=== PATIENT | female | born 1965 | race Caucasian/White ===

== ENCOUNTER 2019-07-08 00:41 | Day surgery (SDC) | payer BC, SELFPAY ==
[2019-07-07 13:48] VITALS: BMI 37.3
[2019-07-08 06:46] VITALS: BP 136/90; PULSE 102; RESP 16; TEMP 37.2; O2SAT 99
[2019-07-08] MEDS: LACTATED RINGERS 1,000 ML 150 ML IV CONT (06:56)
--- NOTE | 2019-07-08 07:01 | WPDANESEPPF ---
Anes - Initial Pre Proc Eval Procedure: Operation Date: 07/08/19 07:30 Proposed Procedures p Colonoscopy - Manuel Reyes DO Date/Time: 07/08/19 07:01 Surgeon: Manuel Reyes DO Pre Op Diagnosis: Diverticulitis Patient Data Age: 54 Gender: F Height: 1.7 m Weight: 107.3 kg Last Vital Signs Temp 37.2 C 07/08/19 06:46 Pulse 102 H 07/08/19 06:46 Resp 16 07/08/19 06:46 BP 136/90 07/08/19 06:46 Pulse Ox 99 07/08/19 06:46 Allergies Allergy/AdvReac Type Severity Reaction Status Date / Time codeine AdvReac Intermediate Vomiting Verified 07/08/19 06:41 Home Medications Medication Instructions Recorded Confirmed Type ergocalciferol (vitamin D2) 1,250 mcg PO WEEKLY 04/18/19 07/08/19 History estradiol 0.5 mg PO DAILY 04/18/19 07/08/19 History levothyroxine 50 mcg PO DAILY 04/18/19 07/08/19 History medroxyprogesterone 5 mg PO DAILY 04/18/19 07/08/19 History sumatriptan succinate 100 mg PO DAILY PRN 04/18/19 07/08/19 History Patient hx anesthesia problems: none Family hx anesthesia problems: none PMFSH Social History Social History Smoking status: Unknown if ever smoked Anes - Eval Final PreProcedure Day of Procedure 07/08/19 07:01 Patient weight: obese Heart: regular rate and rhythm Lungs: clear to auscultation and normal air movement Airway: Mallampati scale class II Neurological: alert and oriented Last oral intake: >/= 8 hours ASA classification: II Emergent: no Anesthetic plan: proceed Anesthesia type and monitoring: general GIVS and standard monitoring Informed Consent: The patient's anesthetic plan and its attendant risks and benefits were discussed with the patient/family/POA. Questions were solicited and answers provided to the satisfaction of the patient/family/POA.
--- NOTE | 2019-07-08 07:24 | PM.IMHP ---
H&P: HPI History of Present Illness Chief complaint: Diverticulitis Narrative: This very pleasant 54-year-old white female was seen in consultation at the request of the primary. The patient was examined. Reason for visit colonoscopy. Impression: Patient is here for screening surveillance colonoscopy. She has a history adenomatous colon polyps. She is here to assure complete removal of a polyp. Migraine cephalgia. Hypothyroidism. Obesity. Recommendation: Colonoscopy. History: This very pleasant lady has a history adenomatous colon polyps. She had a large polyp that was removed in pieces. She is here for follow-up endoscopy to assure complete removal. GI review systems negative at this time. Review of Systems Review of Systems: All systems reviewed & are unremarkable except as noted in HPI and below PMFSH Past Medical History Medical History (Updated 07/08/19 @ 07:26 by Manuel Reyes DO) Adenomatous colon polyp Anxiety Depression Diverticulitis GI bleed Hypothyroid Left wrist fracture Migraine Surgical History Surgical History (Updated 07/08/19 @ 07:26 by Manuel Reyes DO) H/O colonoscopy H/O wisdom tooth extraction Social History Social History Smoking status: Unknown if ever smoked Meds Home Medications and Allergies Home Medications Medication Instructions Recorded Confirmed Type ergocalciferol (vitamin D2) 1,250 mcg PO WEEKLY 04/18/19 07/08/19 History estradiol 0.5 mg PO DAILY 04/18/19 07/08/19 History levothyroxine 50 mcg PO DAILY 04/18/19 07/08/19 History medroxyprogesterone 5 mg PO DAILY 04/18/19 07/08/19 History sumatriptan succinate 100 mg PO DAILY PRN 04/18/19 07/08/19 History Allergies Allergy/AdvReac Type Severity Reaction Status Date / Time codeine AdvReac Intermediate Vomiting Verified 07/08/19 06:41 Vital Signs Vital Signs - 24 hr 07/08/19 06:46 Temperature 37.2 C Pulse Rate 102 H Respiratory Rate 16 Blood Pressure 136/90 Pulse Oximetry 99 Exam Narrative: Exam Narrative: General: very pleasant patient in no acute distress. HEENT: Head was normocephalic sclerae is clear mouth without masses neck was supple. Heart: Rate rhythm regular without S3 or S4. Lungs: CTA. Abdomen: Soft with no guarding or rigidity. Bowel sounds were active. Neurologic: Cranial nerves 2 through 12 intact. No focal defects. No clonus. Musculoskeletal system: Revealed no joint tenderness or swelling no muscle atrophy. Extremities: Reveal no significant edema. Skin: Warm and dry with normal turgor. Mental status: intact. Patient is alert and oriented. Thank you for allowing me to participate in care this was the patient.
[2019-07-08 07:52] VITALS: BP 116/73; PULSE 80; RESP 19; O2SAT 99
[2019-07-08 08:02] VITALS: BP 124/74; PULSE 72; RESP 16; O2SAT 98
[2019-07-08 08:12] VITALS: BP 123/81; PULSE 78; RESP 19; O2SAT 97
== END 2019-07-08 08:23 | disposition home or self-care (01) ==
PROVIDERS: PCP Family Medicine; Visit Provider Internal Medicine Gastroenterology
PROC: 0DJD8ZZ Inspection of Lower Intestinal Tract, Via Natural or Artificial Opening Endoscopic (ICD-10-PCS; CPT 45378; principal; 2019-07-08 07:30)
DX: Z12.11 Encounter for screening for malignant neoplasm of colon (principal); D12.8 Benign neoplasm of rectum; K57.30 Diverticulosis of large intestine without perforation or abscess without bleeding; K64.8 Other hemorrhoids; E03.9 Hypothyroidism, unspecified; F41.8 Other specified anxiety disorders; E66.9 Obesity, unspecified; Z68.37 Body mass index [BMI] 37.0-37.9, adult
CPT/HCPCS: 45380; 88305; J2704; J7120

== ENCOUNTER → 2020-03-06 08:37 | Outpatient (CLI) | payer BC, SELFPAY ==
--- NOTE | ~2020-03-06 | US_ITS ---
EXAMINATION: US transvaginal DATE: 03/06/2020 09:32 INDICATION: Postmenopausal bleeding. TECHNIQUE: Multiple transabdominal and endovaginal sonographic images of the pelvis were obtained. COMPARISON: CT dated FINDINGS: The uterus measures 11.4 x 6.7 x 6.4 cm. A couple subcentimeter anechoic nabothian cysts at the cervi x. There are several uterine fibroids including a 1.7 cm hypoechoic fibroid at the anterior fundus an d an approximately 1.5 cm hyperechoic fibroid posteriorly. On the cine images these appear to distort partially obscured the endometrial canal with the visualized portion of the endometrial canal measur es up to 2 mm in thickness. The endometrial complex measurement performed by the agribusiness professor appears to correspond to a portion of the more posterior hyperechoic fibroid. The bilateral ovaries are not v isualized. There is no free fluid in the pelvis. IMPRESSION: 1. Fibroid uterus which distorts and partially obscures the endometrial complex which does not appear thickened on the cine sagittal images. Could consider further evaluation with MRI for clearer visual ization of the endometrial complex if clinically indicated. Reviewed, dictated and finalized at location A. [facility] TECH IMPRESSION: 1. Fibroid uterus which distorts and partially obscures the endometrial complex which does not appear thickened on the cine sagittal images. Could consider fu rther evaluation with MRI for clearer visualization of the endometrial complex if clinically indicated.
== END ==
PROVIDERS: Visit Provider Nurse Practitioner
DX: D25.9 Leiomyoma of uterus, unspecified (principal)
CPT/HCPCS: 76830

== ENCOUNTER 2020-03-17 00:30 | Outpatient (CLI) | payer BC, SELFPAY ==
[2020-03-17 19:24] LABS: SARS-CoV-2 RNA PCR Negative
== END 2020-03-17 00:31 | disposition home or self-care (01) ==
LOC: ANHCOVIDDT 00:30
PROVIDERS: PCP Family Medicine; Visit Provider Obstetrics & Gynecology Gynecology
DX: Z01.812 Encounter for preprocedural laboratory examination (principal); Z20.828 Contact with and (suspected) exposure to other viral communicable diseases
CPT/HCPCS: 87635; C9803; U0003

== ENCOUNTER 2020-03-20 01:31 | Day surgery (SDC) | payer BC, SELFPAY ==
[2020-03-13 14:54] VITALS: BMI 36.8
[2020-03-20 06:23] VITALS: BP 144/79; PULSE 95; RESP 20; TEMP 36.4; O2SAT 100
[2020-03-20] MEDS: ACETAMINOPHEN 500 MG TABLET 1000 MG PO (06:26)
[2020-03-20] MEDS: LACTATED RINGERS 1,000 ML 30 ML IV CONT (06:57)
[2020-03-20] MEDS: MIDAZOLAM HCL (*CRX) 2 MG/2 ML VIAL IV PUSH (07:15)
--- NOTE | 2020-03-20 07:25 | P.HP_ITS ---
History of Present Illness History of Present Illness Consent: Risks, benefits, and alternatives have been discussed and questions answered. Patient agrees to proceed with procedure. Chief complaint: Postmenopausal Bleeding/ Uterine Fibroids Narrative: Nataly Upton is a 54 year old female with postmenopausal bleeding. Pelvic ultrasound is unable to evaluate endometrium due to fibroids distorting endometium. Recommend to proceed with hysteroscopy and D&C. Discussed with patient may need to remove fibroids if unable to fully evaluate the endometrium. Risks of infection, bleeding, perforation, and possible pathology reviewed. Voiced understanding and agrees to proceed. [facility] Past Medical History Medical History (Updated 03/20/20 @ 07:30 by Amelia Tolbert MD) Adenomatous colon polyp Anxiety Depression Diverticulitis GI bleed Hypothyroid Left wrist fracture Migraine Surgical History Surgical History (System 08/30/19 @ 13:59 by Dulce Cavanaugh) H/O colonoscopy H/O wisdom tooth extraction Family History Family History (System 08/30/19 @ 13:59 by Dulce Cavanaugh) Mother Acute myocardial infarction Cerebrovascular accident Father Family history of lymphoma Family history of malignant neoplasm of breast in first degree relative Grandparent Family history of malignant neoplasm of breast Family history of malignant neoplasm of ovary Social History Social History (System 08/30/19 @ 13:59 by Dulce Cavanaugh) Smoking status: Never smoker Alcohol intake: never Living arrangements: alone Spiritual care concerns: No Meds Home Medications and Allergies Home Medications Medication Instructions Recorded Confirmed Type ergocalciferol (vitamin D2) 1,250 mcg PO 2XW 04/18/19 03/13/20 History estradiol 0.5 mg PO QNOON 04/18/19 03/13/20 History levothyroxine 50 mcg PO DAILY 04/18/19 03/13/20 History medroxyprogesterone 5 mg PO QNOON 04/18/19 03/13/20 History sumatriptan succinate 100 mg PO PRN PRN 04/18/19 03/13/20 History ondansetron 4 mg PO PRN PRN 03/13/20 03/13/20 History Allergies Allergy/AdvReac Type Severity Reaction Status Date / Time codeine AdvReac Intermediate Vomiting Verified 03/13/20 14:27 Exam Const: General: healthy appearing and alert Orientation/consciousness: patient oriented x3 Resp: Effort & Inspection: normal respiratory effort Auscultation: clear to auscultation bilaterally Cardio: Rate: regular rate Rhythm: regular rhythm GI: GI Palp: Yes Soft to palpation, No Tenderness to palpation present (GI) and No Palpable mass present : External Female Exam: normal external appearance Speculum Exam - Vagina: normal appearance of the vagina and normal vaginal discharge Speculum Exam - Cervix: normal appearance of the cervix Bimanual exam- vagina & uterus: consistency normal and other (uterus about 12 wk size) Bimanual Exam- Adnexa, other: normal adnexae and No adnexal tenderness Neuro: General: patient oriented x3 Assessment and Plan Assessment and plan (1) Post-menopausal bleeding: Code(s): N95.0 - Postmenopausal bleeding Status: Acute Assessment and Plan: Plan to proceed with hysteroscopy with D&C
--- NOTE | 2020-03-20 07:35 | WPDHPUPDATE1 ---
History and Physical Update Update Date/Time: 03/20/20 07:35 History and Physical has been reviewed, including an updated exam of the patient. There are NO changes in the patient's condition. Risks, benefits, and alternatives have been discussed and questions answered. Patient agrees to proceed with procedure.
--- NOTE | 2020-03-20 07:45 | WPDANESEPPF ---
Anes - Initial Pre Proc Eval Procedure: Operation Date: 03/20/20 08:15 Proposed Procedures p Hysteroscopy, Dilation and Curettage, With Myosure - Amelia Tolbert MD Date/Time: 03/20/20 07:45 Surgeon: Amelia Tolbert MD Pre Op Diagnosis: Postmenopausal Bleeding/ Uterine Fibroids Patient Data Age: 54 Gender: F Height: 5 ft 7 in Weight: 104.8 kg Last Vital Signs Temp 36.4 C L 03/20/20 06:23 Pulse 95 03/20/20 06:23 Resp 20 03/20/20 06:23 BP 144/79 H 03/20/20 06:23 Pulse Ox 100 03/20/20 06:23 Allergies Allergy/AdvReac Type Severity Reaction Status Date / Time codeine AdvReac Intermediate Vomiting Verified 03/20/20 07:32 Home Medications Medication Instructions Recorded Confirmed Type ergocalciferol (vitamin D2) 1,250 mcg PO 2XW 04/18/19 03/20/20 History estradiol 0.5 mg PO QNOON 04/18/19 03/20/20 History levothyroxine 50 mcg PO DAILY 04/18/19 03/20/20 History medroxyprogesterone 5 mg PO QNOON 04/18/19 03/20/20 History sumatriptan succinate 100 mg PO PRN PRN 04/18/19 03/13/20 History ondansetron 4 mg PO PRN PRN 03/13/20 03/13/20 History Patient hx anesthesia problems: none Family hx anesthesia problems: none PMFSH Past Medical History Medical History Adenomatous colon polyp Anxiety Depression Diverticulitis GI bleed Hypothyroid Left wrist fracture Migraine Surgical History Surgical History H/O colonoscopy H/O wisdom tooth extraction Family History Family History Mother Acute myocardial infarction Cerebrovascular accident Father Family history of lymphoma Family history of malignant neoplasm of breast in first degree relative Grandparent Family history of malignant neoplasm of breast Family history of malignant neoplasm of ovary Social History Social History Smoking status: Never smoker Alcohol intake: never Living arrangements: alone Spiritual care concerns: No Anes - Eval Final PreProcedure Day of Procedure 03/20/20 07:45 Patient weight: obese Heart: regular rate and rhythm Lungs: clear to auscultation Airway: Mallampati scale class II Neurological: alert and oriented Last oral intake: >/= 8 hours ASA classification: III Emergent: no Anesthetic plan: proceed Anesthesia type and monitoring: general GIVS and standard monitoring Informed Consent: The patient's anesthetic plan and its attendant risks and benefits were discussed with the patient/family/POA. Questions were solicited and answers provided to the satisfaction of the patient/family/POA.
--- NOTE | 2020-03-20 08:51 | SUR.OPER ---
Hysteroscopy fluid, 2000ml in and 1400ml out
[2020-03-20 08:59] VITALS: BP 121/74; PULSE 83; RESP 12; O2SAT 100
--- NOTE | 2020-03-20 09:01 | P.OP_ITS ---
Procedure Note - Detailed Date of procedure: 03/20/20 Pre-op diagnosis: Postmenopausal Bleeding/ Uterine Fibroids Post-op diagnosis: same Procedure performed: D&C hysteroscopy with myosure Description of procedure: The patient was taken to the operating room and placed under anesthesia in the dorsal lithotomy position. She was prepped and draped in the usual sterile fashion. [place] speculum was placed in the vagina and the cervix is grasped on the anterior lip with a tenaculum. The uterus is sounded to 10cm. The cervix is serially dilated to an 8 [place]. The diagnostic MyoSure scope was placed and the stated findings are noted. The MyoSure device is used to remove both polyps as well as the majority of the fibroid is removed. The remainder of the endometrium appears grossly normal. Measure device is removed. The endometrium was sharply curetted until a good uterine cry was noted in all areas. All instruments are removed. Sponge, instrument, and needle counts are correct per the OR staff. Anesthesia: MAC and local Surgeon: Amelia Tolbert MD Estimated blood loss (mL): 5 Drains: No Packing: No Pathology: yes (endometrial shavings and curettings) Complications: No immediate complications Condition: stable Disposition: PACU Findings: uterus 10 cm; posterior midline large polyp; left cornua polyp; left side wall fibroid
[2020-03-20 09:25] VITALS: BP 134/84; PULSE 78; RESP 12
[2020-03-20 09:40] VITALS: BP 136/76; PULSE 76; RESP 12; O2SAT 100
[2020-03-20] MEDS: fentaNYL CITRATE INJ (*CRX) 100 MCG/2 ML VIAL 25 MCG IV PUSH ×2 (09:41→09:46)
[2020-03-20 09:45] VITALS: BP 124/67; PULSE 74; RESP 12; O2SAT 100
[2020-03-20 10:05] VITALS: BP 140/84; PULSE 79; RESP 12; O2SAT 100
== END 2020-03-20 10:18 | disposition home or self-care (01) ==
PROVIDERS: PCP Family Medicine; Visit Provider Obstetrics & Gynecology Gynecology
PROC: 0U5B8ZZ Destruction of Endometrium, Via Natural or Artificial Opening Endoscopic (ICD-10-PCS; CPT 58563; principal; 2020-03-20 08:15)
DX: N95.0 Postmenopausal bleeding (principal); D25.0 Submucous leiomyoma of uterus; N84.0 Polyp of corpus uteri; E03.9 Hypothyroidism, unspecified; F41.8 Other specified anxiety disorders; E66.9 Obesity, unspecified; Z68.36 Body mass index [BMI] 36.0-36.9, adult
CPT/HCPCS: 58561; 88305; A9270; J2250; J2704; J3010; J7030; J7120

== ENCOUNTER 2020-04-10 02:19 | Outpatient (CLI) | payer BC, SELFPAY ==
[2020-04-10 18:35] LABS: SARS-CoV-2 RNA PCR Negative
== END 2020-04-10 02:20 | disposition home or self-care (01) ==
LOC: ANHCOVIDDT 02:19
PROVIDERS: PCP Family Medicine; Visit Provider Internal Medicine Gastroenterology
DX: Z01.812 Encounter for preprocedural laboratory examination (principal); Z20.828 Contact with and (suspected) exposure to other viral communicable diseases
CPT/HCPCS: 87635; C9803; U0003

== ENCOUNTER 2020-04-13 00:20 | Day surgery (SDC) | payer BC, SELFPAY ==
[2020-04-07 09:17] VITALS: BMI 36.9
--- NOTE | 2020-04-12 12:38 | WPDANESEPPF ---
Anes - Initial Pre Proc Eval Procedure: Operation Date: 04/13/20 09:30 Proposed Procedures p Screening Colonoscopy - Manuel Reyes DO Date/Time: 04/12/20 12:38 Surgeon: Manuel Reyes DO Pre Op Diagnosis: neoplasm screening Patient Data Age: 54 Gender: F Height: 1.7 m Weight: 107 kg Allergies Allergy/AdvReac Type Severity Reaction Status Date / Time codeine AdvReac Intermediate Vomiting Verified 04/07/20 09:18 Home Medications Medication Instructions Recorded Confirmed Type ergocalciferol (vitamin D2) 1,250 mcg PO 2XW 04/18/19 04/07/20 History estradiol 0.5 mg PO QNOON 04/18/19 04/07/20 History levothyroxine 50 mcg PO DAILY 04/18/19 04/07/20 History medroxyprogesterone 5 mg PO QNOON 04/18/19 04/07/20 History sumatriptan succinate 100 mg PO PRN PRN 04/18/19 04/07/20 History mirabegron [Myrbetriq] 25 mg PO HS 04/07/20 04/07/20 History Patient hx anesthesia problems: none Family hx anesthesia problems: none PMFSH Past Medical History Medical History Adenomatous colon polyp Anxiety Depression Diverticulitis GI bleed Hypothyroid Left wrist fracture Migraine Surgical History Surgical History H/O colonoscopy H/O wisdom tooth extraction Family History Family History Mother Acute myocardial infarction Cerebrovascular accident Father Family history of lymphoma Family history of malignant neoplasm of breast in first degree relative Grandparent Family history of malignant neoplasm of breast Family history of malignant neoplasm of ovary Social History Social History Smoking status: Never smoker Alcohol intake: never Substance use: never Substance use type: does not use Living arrangements: with family Spiritual care concerns: No Anes - Eval Final PreProcedure Day of Procedure 04/12/20 12:38 Patient weight: obese Heart: regular rate and rhythm Lungs: clear to auscultation and normal air movement Airway: Mallampati scale class II Neurological: alert and oriented Last oral intake: >/= 8 hours ASA classification: III Emergent: no Anesthetic plan: proceed Anesthesia type and monitoring: general GIVS and standard monitoring Informed Consent: The patient's anesthetic plan and its attendant risks and benefits were discussed with the patient/family/POA. Questions were solicited and answers provided to the satisfaction of the patient/family/POA.
[2020-04-13 08:22] VITALS: BP 137/80; PULSE 104; RESP 16; TEMP 36.8; O2SAT 99; BMI 36.3
[2020-04-13] MEDS: LACTATED RINGERS 1,000 ML 150 ML IV CONT (08:33)
--- NOTE | 2020-04-13 08:49 | PM.IMHP ---
H&P: HPI History of Present Illness Date/Time: 04/13/20 08:49 Chief Complaint: See below Narrative: reason for visit is colonoscopy. This very pleasant lady seen in consultation at the request the primary physician. Impression: Screening and surveillance colonoscopy. The patient's history of an adenomatous rectal polyp. Recurrence of the polypectomy site was noted. She is here for continued screening and surveillance. Diverticulosis coli. Hypothyroidism. Anxiety / depression. Obesity. Migraine cephalgia. Recommendation: Colonoscopy. History: This very pleasant lady has left lower quadrant abdominal discomfort. She has a history adenomatous colon polyps. Follow-up colonoscopy revealed some residual adenomatous tissue. She is here for follow-up colonoscopy to assess the need for further polyp removal. Physical examination: General: very pleasant patient in no acute distress. HEENT: Head was normocephalic sclerae is clear mouth without masses neck was supple. Heart: Rate rhythm regular without S3 or S4. Lungs: CTA. Abdomen: Soft with no guarding or rigidity. Bowel sounds were active. Neurologic: Cranial nerves 2 through 12 intact. No focal defects. No clonus. Musculoskeletal system: Revealed no joint tenderness or swelling no muscle atrophy. Extremities: Reveal no significant edema. Skin: Warm and dry with normal turgor. Mental status: intact. Patient is alert and oriented. Review of Systems Review of Systems: All systems reviewed & are unremarkable except as noted in HPI and below PMFSH Past Medical History Medical History Adenomatous colon polyp Anxiety Depression Diverticulitis GI bleed Hypothyroid Left wrist fracture Migraine Surgical History Surgical History H/O colonoscopy H/O wisdom tooth extraction Family History Family History Mother Acute myocardial infarction Cerebrovascular accident Father Family history of lymphoma Family history of malignant neoplasm of breast in first degree relative Grandparent Family history of malignant neoplasm of breast Family history of malignant neoplasm of ovary Social History Social History Smoking status: Never smoker Alcohol intake: never Substance use: never Substance use type: does not use Living arrangements: with family Spiritual care concerns: No Meds Home Medications and Allergies Home Medications Medication Instructions Recorded Confirmed Type ergocalciferol (vitamin D2) 1,250 mcg PO 2XW 04/18/19 04/13/20 History estradiol 0.5 mg PO QNOON 04/18/19 04/13/20 History levothyroxine 50 mcg PO DAILY 04/18/19 04/13/20 History medroxyprogesterone 5 mg PO QNOON 04/18/19 04/13/20 History sumatriptan succinate 100 mg PO PRN PRN 04/18/19 04/07/20 History mirabegron [Myrbetriq] 25 mg PO HS 04/07/20 04/13/20 History Allergies Allergy/AdvReac Type Severity Reaction Status Date / Time codeine AdvReac Intermediate Vomiting Verified 04/13/20 08:22 Vital Signs Vital Signs - 24 hr 04/13/20 08:22 Temperature 36.8 C Pulse Rate 104 H Respiratory Rate 16 Blood Pressure 137/80 Pulse Oximetry 99
[2020-04-13 09:17] VITALS: BP 114/68; PULSE 79; RESP 20; O2SAT 100
[2020-04-13 09:27] VITALS: BP 118/65; PULSE 79; RESP 17; O2SAT 100
[2020-04-13 09:37] VITALS: BP 120/78; PULSE 84; RESP 18; O2SAT 99
[2020-04-13 09:40] VITALS: BP 133/72; PULSE 81; RESP 17; O2SAT 100
== END 2020-04-13 09:53 | disposition home or self-care (01) ==
PROVIDERS: PCP Family Medicine; Visit Provider Internal Medicine Gastroenterology
PROC: 0DJD8ZZ Inspection of Lower Intestinal Tract, Via Natural or Artificial Opening Endoscopic (ICD-10-PCS; CPT 45378; principal; 2020-04-13 09:30)
DX: Z12.11 Encounter for screening for malignant neoplasm of colon (principal); D12.8 Benign neoplasm of rectum; F41.9 Anxiety disorder, unspecified; F32.9 Major depressive disorder, single episode, unspecified; E03.9 Hypothyroidism, unspecified; G43.909 Migraine, unspecified, not intractable, without status migrainosus; K57.92 Diverticulitis of intestine, part unspecified, without perforation or abscess without bleeding; E66.9 Obesity, unspecified; Z68.36 Body mass index [BMI] 36.0-36.9, adult
CPT/HCPCS: 45380; 87635; 88305; C9803; J2704; J7120; U0003

== ENCOUNTER → 2020-05-03 13:42 | Outpatient (CLI) | payer BC, SELFPAY ==
--- NOTE | ~2020-05-03 | MM_ITS ---
EXAMINATION: MM screening haseeb BI w breanna HISTORY: Screening mammogram TECHNIQUE: Craniocaudal and mediolateral oblique 3-D tomosynthesis images were obtained and synthetic 2-D images were generated. CAD analysis was submitted and interpreted. COMPARISON: 02/05/2019 bilateral digital screening mammogram 09/11/2017 diagnostic left digital mammogram and limited left breast ultrasound 08/18/2017, 07/24/2016 bilateral digital screening mammogram examinations BREAST PARENCHYMAL COMPOSITION: There are scattered areas of fibroglandular density. FINDINGS: Stable mild fibroglandular asymmetry. Stable circumscribed low-density opacity 5 mm intrama mmary lymph node in the posterior upper left breast on MLO view, unchanged since 08/18/2017. There is no evidence of suspicious mass, calcification, or architectural distortion to suggest malignancy in e ither breast. There has been no suspicious interval change. IMPRESSION: 1. No mammographic evidence of malignancy. 2. Recommend routine screening mammography in one year. BI-RADS Category 2: Benign finding(s). Reviewed, dictated and finalized at location B. IVABLE CLERK
== END ==
PROVIDERS: Visit Provider Nurse Practitioner
DX: Z12.31 Encounter for screening mammogram for malignant neoplasm of breast (principal)
CPT/HCPCS: 77063; 77067

== ENCOUNTER 2021-06-03 11:38 | Emergency (ER) | payer BC, SELFPAY ==
--- NOTE | ~2021-06-03 | CT_ITS ---
EXAMINATION: CT abdomen pelvis w con DATE: 06/03/2021 13:58 INDICATION: Left lower quadrant pain. History of diverticulitis. TECHNIQUE: Computed tomography (CT) of the abdomen and pelvis was performed without intravenous contr ast. The dose-length product was 1316.96 mGy-cm. Automated exposure control and iterative reconstruct ion technique were employed. COMPARISON: CT dated 04/18/2019. FINDINGS: Stable right lower lobe nodules measuring up to 6 mm, most likely benign. Heart size normal . No significant pleural or pericardial effusion. No significant vascular abnormality. No lymphadenop athy. Fatty infiltration of the liver. There is a 3 cm cyst. The spleen, pancreas, adrenal glands and kidne ys are unremarkable. Nonobstructive bowel gas pattern. There are uterine fibroids. Colonic diverticul osis without evidence for diverticulitis. No acute osseous abnormality. Nonobstructive bowel gas franny sathish. Normal appendix. IMPRESSION: 1. No acute abdominal abnormality. 2: Stable benign-appearing right lower lobe nodules, most likely noncalcified granulomas. Reviewed, dictated and finalized at location A. [employer]
[2021-06-03 11:49] VITALS: BP 155/101; PULSE 89; RESP 16; TEMP 36.8; O2SAT 100
--- NOTE | 2021-06-03 12:50 | ED.ABDPAIN ---
HPI - Abdominal Pain General Chief Complaint: Abdominal Pain Stated Complaint: LLQ ABD PAIN XWEEK Time Seen by Provider: 06/03/21 12:27 Source: patient Mode of arrival: ambulatory Limitations: no limitations History of Present Illness HPI narrative: Patient is a 56-year-old female complaining of left upper quadrant pain, 5 out of 10, sharp, nonradiating accompanied by nausea started 1 week ago. Patient states that she has a history of diverticulitis. Patient denies any chest pain, shortness of breath, vomiting, diarrhea, GI bleed, urinary symptoms, fever or chills. Related Data Home Medications Medication Instructions Recorded Confirmed ergocalciferol (vitamin D2) 1,250 mcg PO 2XW 04/18/19 04/13/20 estradiol 0.5 mg PO QNOON 04/18/19 04/13/20 levothyroxine 50 mcg PO DAILY 04/18/19 04/13/20 medroxyprogesterone 5 mg PO QNOON 04/18/19 04/13/20 sumatriptan succinate 100 mg PO PRN PRN 04/18/19 04/07/20 mirabegron [Myrbetriq] 25 mg PO HS 04/07/20 04/13/20 Allergies Allergy/AdvReac Type Severity Reaction Status Date / Time codeine AdvReac Intermediate Vomiting Verified 04/13/20 08:22 Review of Systems Review of Systems: All systems reviewed & are unremarkable except as noted in HPI and below Constitutional: Constitutional: Denies body ache(s), Denies chills, Denies excessive sweating, Denies fatigue, Denies fever(s), Denies headache(s), Denies lethargy, Denies malaise, Denies weakness and Denies weight loss Eyes: Eyes: Denies blurry vision, Denies change in vision and Denies loss of vision ENT: Denies dizziness, Denies ear discharge, Denies headache(s), Denies lip swelling, Denies epistaxis, Denies nasal congestion, Denies neck pain, Denies throat swelling and Denies tongue swelling Cardiovascular: Cardiovascular: Denies chest pain, Denies chest pain at rest, Denies chest pain with activity, Denies diaphoresis, Denies rapid heart rate, Denies edema, Denies irregular heart rhythm, Denies lightheadedness, Denies palpitations, Denies dyspnea and Denies dyspnea on exertion Respiratory: Respiratory: Denies chest congestion, Denies cough, Denies hemoptysis, Denies dyspnea and Denies dyspnea on exertion Gastrointestinal: Gastrointestinal: Denies melena, Denies hematochezia, Denies diarrhea, Denies vomiting and Denies hematemesis Musculoskeletal: Musculoskeletal: Denies abnormal gait, Denies deformity, Denies joint swelling, Denies limited range of motion, Denies neck pain and Denies numbness Neurologic: Denies Abnormal speech present, Denies abnormal gait, Denies confusion, Denies dizziness, Denies headache(s), Denies focal weakness, Denies loss of vision, Denies numbness, Denies Other visual disturbances, Denies Sensory deficit (Neuro) and Denies weakness Psychiatric: Psychiatric: Denies confusion, Denies depression, Denies auditory hallucinations, Denies homicidal ideation and Denies suicidal ideation Endocrine: Endocrine: Denies cold intolerance, Denies excessive sweating, Denies fatigue, Denies heat intolerance and Denies palpitations Hematologic/Lymphatic: Hematologic/Lymphatic: Denies easy bleeding and Denies easy bruising Allergic/Immunologic: Allergic/Immunologic: Denies lip swelling, Denies throat swelling and Denies tongue swelling PMFSH Past Medical History Medical History Adenomatous colon polyp Anxiety Depression Diverticulitis GI bleed Hypothyroid Left wrist fracture Migraine Surgical History Surgical History H/O colonoscopy H/O wisdom tooth extraction Family History Family History Mother Acute myocardial infarction Cerebrovascular accident Father Family history of lymphoma Family history of malignant neoplasm of breast in first degree relative Grandparent Family history of malignant neoplasm of breast Family history of malignant neoplasm o
[2021-06-03 13:00] LABS: Basophils Absolute Auto 0.1 K/mm3 (0.0-0.1); Basophils Percent Auto 0.7 % (0.2-1.2); Eosinophils Absolute Auto 0.1 K/mm3 (0-0.3); Eosinophils Percent Auto 0.5 % (0-4.4); Hematocrit 42.3 % (37.0-47.0); Hemoglobin 14.2 g/dL (12.0-15.0); Immature Granulocyte Absolute 0.07 K/mm3 (0.00-0.031); Immature Granulocyte Percent A 0.8 % (0-0.5); Lymphocytes Absolute Auto 1.64 K/mm3 (0.9-3.2); Lymphocytes Percent Auto 17.9 % (18.3-44.2); Mean Corpuscular HGB Conc 33.6 g/dl (32-36); Mean Corpuscular Hemoglobin 30.1 pg (26-34); Mean Corpuscular Volume 89.8 fl (80-100); Mean Platelet Volume 9.5 fl (7.4-10.4); Monocytes Absolute Auto 0.6 K/mm3 (0.1-0.6); Monocytes Percent Auto 6.8 % (2.6-8.5); Neutrophils Absolute Auto 6.7 K/mm3 (1.3-6.7); Neutrophils Percent Auto 73.3 % (45.5-73.1); Platelet Count Result 272 k/mm3 (150-375); Red Blood Count 4.71 M/mm3 (4.2-5.4); Red Cell Distribution Width 12.5 % (11.5-14.5); White Blood Count 9.2 K/mm3 (4.5-10.0)
[2021-06-03 13:02] LABS: Add Urine Microscopic? YES; Appearance Urine Clear (Clear); Bacteria Urine 3+ /hpf; Bilirubin Urine Negative (Negative); Blood Urine 1+ (Negative); Color Urine Straw (Yellow); Glucose Urine UA Negative (Negative); Ketones Urine Negative (Negative); Leukocyte Esterase Ur Trace LEU/UL (Negative); Nitrate Urine Negative (Negative); Protein Urine Negative (Negative); Squamous Epithelial Cell Urine Rare /hpf (Few); Urobilinogen Urine Negative mg/dL (<2.0)
[2021-06-03 13:03] LABS: Specific Grav Ur 1.004 (1.001-1.035)
[2021-06-03 13:09] LABS: Alanine Aminotransferase 28 U/L (4-35); Albumin Level 4.6 g/dL (3.5-5.1); Alkaline Phosphatase 73 U/L (38-126); Anion Gap 9 mmol/L (8-16); Aspartate Amino Transferase 30 U/L (14-36); Bilirubin,Total 0.7 mg/dL (0.2-1.3); Blood Urea Nitrogen 10 mg/dL (7-17); Calcium 9.9 mg/dL (8.4-10.2); Carbon Dioxide 23 mmol/L (22-30); Chloride 102 mmol/L (98-107); Estimated CRCL calculation 84 ml/min; Estimated Glomerular Filt Rate > 60; Glucose 127 mg/dL (65-110); Lipase 73 U/L (23-300); Sodium 134 mmol/L (137-145)
[2021-06-03] MEDS: ONDANSETRON INJ 4 MG/2 ML VIAL IV PUSH (14:08)
[2021-06-03] MEDS: HYDROmorphone HCL INJ (*CRX) 1 MG/ML SYR 0.5 MG IV PUSH (14:08)
[2021-06-03 15:26] VITALS: BP 119/77; PULSE 91; RESP 18; O2SAT 99
[2021-06-03 16:21] VITALS: BP 128/81; PULSE 86; RESP 18; O2SAT 97
== END 2021-06-03 16:22 | disposition home or self-care (01) ==
PROVIDERS: Emergency Provider Emergency Medicine
DX: N39.0 Urinary tract infection, site not specified (principal); R31.9 Hematuria, unspecified; E03.9 Hypothyroidism, unspecified; Z86.010 Personal history of colon polyps; R91.8 Other nonspecific abnormal finding of lung field
CPT/HCPCS: 36415; 74177; 80053; 81001; 83690; 85025; 96374; 96375; 99284; J1170; J2405; Q9967

== ENCOUNTER 2021-09-10 20:20 | Emergency (ER) | payer BC, SELFPAY ==
--- NOTE | ~2021-09-10 | CT_ITS ---
EXAMINATION: CT abdomen pelvis w con DATE: 09/10/2021 23:04 INDICATION: Lower abdominal pain TECHNIQUE: Computed tomography (CT) of the abdomen and pelvis was performed with 100 mL Omnipaque-350 intravenous contrast. Automated exposure control and iterative reconstruction technique were employe d. The dose-length product was 1433.87 mGy-cm. COMPARISON: 06/03/2021 and 08/16/2014 FINDINGS: Likely benign 4 mm and 5 mm right lower lobe nodules unchanged since 2014. Heart size is normal. No p ericardial or pleural effusion. A few unchanged low-attenuation hepatic cysts the largest measuring 3 cm in the right hepatic lobe. Gallbladder, spleen, pancreas, bilateral adrenal glands and kidneys ar e normal. There is moderate scattered diverticulosis. There is inflammatory stranding surrounding a d iverticulum at the proximal sigmoid colon consistent with diverticulitis. No abscess or free intraper itoneal gas. Small bowel and appendix are normal. Fibroid uterus, the largest measuring 5 cm. Trace a mount of likely physiologic free fluid in the pelvis. No pathologically enlarged abdominal or pelvic lymphadenopathy. Right ischial small bone island.. IMPRESSION: 1. Radiographically uncomplicated sigmoid diverticulitis. 2. Fibroid uterus. Reviewed, dictated and finalized at location A.
[2021-09-10 20:32] VITALS: BP 146/83; PULSE 92; RESP 18; TEMP 37.1; O2SAT 99
[2021-09-10 20:51] LABS: Bacteria Urine 2+ /hpf; Squamous Epithelial Cell Urine Occasional /hpf (Few); WBC Urine 0-3 /hpf
--- NOTE | 2021-09-10 20:58 | PC.NURSE ---
Pt requests this nurse not take blood until an IV is placed since she is a hard stick .
[2021-09-10 20:59] LABS: Appearance Urine Clear (Clear); Bilirubin Urine Negative (Negative); Blood Urine 1+ (Negative); Color Urine Yellow (Yellow); Glucose Urine UA Negative (Negative); Ketones Urine Negative (Negative); Leukocyte Esterase Ur Negative LEU/UL (Negative); Nitrate Urine Negative (Negative); Protein Urine Negative (Negative); Specific Grav Ur 1.015 (1.001-1.035); Urobilinogen Urine 0.2 mg/dL (<2.0)
[2021-09-10 21:00] LABS: Add Urine Microscopic? YES
[2021-09-10 22:24] LABS: Basophils Absolute Auto 0.1 K/mm3 (0.0-0.1); Basophils Percent Auto 0.6 % (0.2-1.2); Eosinophils Absolute Auto 0.1 K/mm3 (0-0.3); Eosinophils Percent Auto 1.2 % (0-4.4); Hematocrit 38.5 % (37.0-47.0); Hemoglobin 12.7 g/dL (12.0-15.0); Immature Granulocyte Absolute 0.08 K/mm3 (0.00-0.031); Immature Granulocyte Percent A 0.7 % (0-0.5); Lymphocytes Absolute Auto 2.26 K/mm3 (0.9-3.2); Lymphocytes Percent Auto 19.4 % (18.3-44.2); Mean Corpuscular Hemoglobin 29.6 pg (26-34); Mean Corpuscular Volume 89.7 fl (80-100); Mean Platelet Volume 9.8 fl (7.4-10.4); Monocytes Percent Auto 8.6 % (2.6-8.5); Neutrophils Absolute Auto 8.1 K/mm3 (1.3-6.7); Neutrophils Percent Auto 69.5 % (45.5-73.1); Platelet Count Result 263 k/mm3 (150-375); Red Blood Count 4.29 M/mm3 (4.2-5.4); Red Cell Distribution Width 12.8 % (11.5-14.5); White Blood Count 11.6 K/mm3 (4.5-10.0)
[2021-09-10 22:37] LABS: Alanine Aminotransferase 26 U/L (6-35); Albumin Level 4.7 g/dL (3.5-5.1); Alkaline Phosphatase 65 U/L (38-126); Anion Gap 7 mmol/L (8-16); Aspartate Amino Transferase 27 U/L (14-36); Bilirubin,Total 0.5 mg/dL (0.2-1.3); Blood Urea Nitrogen 9 mg/dL (7-17); Calcium 9.2 mg/dL (8.4-10.2); Carbon Dioxide 25 mmol/L (22-30); Chloride 103 mmol/L (98-107); Estimated CRCL calculation 96 ml/min; Estimated Glomerular Filt Rate > 60; Glucose 134 mg/dL (65-110); Lipase 128 U/L (23-300); Potassium 4.4 mmol/L (3.4-5.0); Sodium 135 mmol/L (137-145)
[2021-09-10] MEDS: SODIUM CHLORIDE 0.9% IV 1,000 ML 999 ML IV CONT (23:19)
[2021-09-10] MEDS: ONDANSETRON INJ 4 MG/2 ML VIAL IV PUSH (23:20)
[2021-09-10] MEDS: HYDROmorphone HCL INJ (*CRX) 1 MG/ML SYR IV PUSH (23:21)
--- NOTE | 2021-09-10 23:30 | ED.ABDPAIN ---
HPI - Abdominal Pain General Chief Complaint: Abdominal Pain Stated Complaint: Lower abdominal pain Time Seen by Provider: 09/10/21 22:27 Source: patient and RN notes reviewed Mode of arrival: ambulatory Limitations: no limitations History of Present Illness HPI narrative: This is a 56 year old female with history of diverticulitis and UTI who presents for evaluation of left lower abdominal pain. She describes has pressure pain to left lower abdomen for several weeks. This pain has been constant but it intermittently worsens. She also reports left lower back/buttock pain. She has been taking Tylenol for pain, and she took 2 prior to arrival due to having fever 101. She has nausea but denies vomiting. She denies hematuria or dysuria. She called her urologist about her pain and she was prescribed an antibiotic. She has not had any improvement in her pain. She denies history of kidney stones and she reports this pain does not feel like her previous episode of diverticulitis. She rates pain as 8/10. Related Data Home Medications Medication Instructions Recorded Confirmed ergocalciferol (vitamin D2) 1,250 mcg PO 2XW 04/18/19 04/13/20 estradiol 0.5 mg PO QNOON 04/18/19 04/13/20 levothyroxine 50 mcg PO DAILY 04/18/19 04/13/20 medroxyprogesterone 5 mg PO QNOON 04/18/19 04/13/20 sumatriptan succinate 100 mg PO PRN PRN 04/18/19 04/07/20 mirabegron [Myrbetriq] 25 mg PO HS 04/07/20 04/13/20 Allergies Allergy/AdvReac Type Severity Reaction Status Date / Time codeine AdvReac Intermediate Vomiting Verified 09/10/21 21:59 Review of Systems Review of Systems: All systems reviewed & are unremarkable except as noted in HPI and below Constitutional: Constitutional: Reports chills and Reports fever(s) ENT: Denies epistaxis and Denies sore throat Cardiovascular: Cardiovascular: Denies chest pain Respiratory: Respiratory: Denies cough and Denies dyspnea Gastrointestinal: Gastrointestinal: Reports abdominal pain, Denies constipation, Denies diarrhea, Reports nausea and Denies vomiting Genitourinary: Genitourinary: Denies hematuria and Denies urinary incontinence Musculoskeletal: Musculoskeletal: Reports back pain PMFSH Past Medical History Medical History Adenomatous colon polyp Anxiety Depression Diverticulitis GI bleed Hypothyroid Left wrist fracture Migraine Surgical History Surgical History H/O colonoscopy H/O wisdom tooth extraction Family History Family History Mother Acute myocardial infarction Cerebrovascular accident Father Family history of lymphoma Family history of malignant neoplasm of breast in first degree relative Grandparent Family history of malignant neoplasm of breast Family history of malignant neoplasm of ovary Social History Social History Smoking status: Never smoker Alcohol intake: never Substance use: never Substance use type: does not use Spiritual care concerns: No Exam Const: General: no acute distress and alert Nutritional Appearance: obese Orientation/consciousness: patient oriented x3 Eyes: EOM: EOMs intact bilaterally Chest: Chest palpation & inspection: normal inspection of the chest Resp: Effort & Inspection: normal respiratory effort and no retractions Auscultation: clear to auscultation bilaterally Cardio: Rate: regular rate Rhythm: regular rhythm Heart sounds: no murmurs GI: GI Palp: Yes Soft to palpation, Yes Tenderness to palpation present (GI) (LLQ, ), No Guarding due to palpation present (GI) and No Rigid due to palpation Auscultation: normal bowel sounds Back/Spine/Pelvis: Back: no CVA tenderness Neuro: General: patient oriented x3, moves all extremities and CN's II-XI intact bilaterally Psych: Mental Status: m
[2021-09-11] MEDS: cefTRIAXone 2 GM in SODIUM CHLORIDE 0.9% IV 100 ML 200 ML IVPB (01:01)
[2021-09-11 02:49] VITALS: BP 156/82; PULSE 87; RESP 18; O2SAT 100
== END 2021-09-11 02:31 | disposition home or self-care (01) ==
PROVIDERS: Emergency Medicine; Emergency Provider General Practice; PCP Family Medicine
DX: K57.32 Diverticulitis of large intestine without perforation or abscess without bleeding (principal); E03.9 Hypothyroidism, unspecified; F41.9 Anxiety disorder, unspecified; F32.A Depression, unspecified; Z86.010 Personal history of colon polyps
CPT/HCPCS: 36415; 74177; 80053; 81001; 81025; 83690; 85025; 95864; 96361; 96365; 96375; 99284; J0696; J1170; J2405; J7030; Q9967

== ENCOUNTER 2021-10-27 08:36 | Emergency (ER) | payer BC, SELFPAY ==
--- NOTE | ~2021-10-27 | CT_ITS ---
EXAMINATION: CT abdomen pelvis w con DATE: 10/27/2021 10:03 INDICATION: Left lower quadrant abdominal pain, suprapubic pain. TECHNIQUE: Computed tomography (CT) of the abdomen and pelvis was performed with 100 CC Omnipaque 300 intravenous contrast. Automated exposure control and iterative reconstruction technique were employe d. Exam dose: 1501.16 mGy-cm total exam DLP. COMPARISON: 09/10/2021 CT abdomen pelvis FINDINGS: Right lower lobe calcified pulmonary granulomas. No infiltrate or consolidation at the lung bases. Normal heart size. No pericardial or pleural effusion. 7 mm probable cyst of the left hepatic lobe. 10 mm cyst of the caudate process of the liver. 3 cm cys t of the lower aspect of the right hepatic lobe. The gallbladder appears unremarkable. No gallbladder wall thickening or pericholecystic fluid or fat stranding. No bile duct or pancreatic duct dilatation. No pancreatic mass lesion or calcification. Normal splenic size. Normal morphology of the adrenal glands. No renal mass lesion or urinary tract calculus or hydroureteronephrosis. Evidence of uterine fibroids. Uterus, adnexal areas and urinary bladder are otherwise unremarkable. Small fat-containing umbilical hernia. Normal caliber of the abdominal aorta. No intraperitoneal or retroperitoneal or pelvic mass lesion or adenopathy or ascites. Normal appendix. Diverticulosis of left and right colon. There is soft tissue thickening of the wall of the mid sigmoi d colon with pericolic fat stranding, consistent with mild sigmoid diverticulitis in the lower anteri or mid pelvis Included skeletal structures are unremarkable. IMPRESSION: Mild sigmoid diverticulitis, lower anterior mid pelvis Diverticulosis of left hemicolon Uterine fibroids Hepatic cysts Reviewed, dictated and finalized at Location [facility]. Reviewed, dictated and finalized at location A.
--- NOTE | ~2021-10-27 | XR_ITS ---
XR toe 1st LT min 2V DATE: 10/27/2021 09:21 INDICATION: Injury. Redness and pain of great toe. TECHNIQUE: Portable AP and lateral views COMPARISON: None FINDINGS: No fracture or dislocation, periosteal reaction or bone destruction of the great toe. Mild osteoarthritis at the first metatarsophalangeal joint. Mild plantar and slight posterior calcaneal enthesopathy. IMPRESSION: No fracture or dislocation. Mild osteoarthritis at first metatarsophalangeal joint Calcaneal enthesopathy Reviewed, dictated and finalized at location A.
[2021-10-27 08:38] VITALS: BP 153/91; PULSE 91; RESP 18; TEMP 37; O2SAT 100
--- NOTE | 2021-10-27 09:03 | ED.ABDPAIN ---
HPI - Abdominal Pain General Chief Complaint: Abdominal Pain Stated Complaint: Abd pain Time Seen by Provider: 10/27/21 08:50 History of Present Illness HPI narrative: Patient is a 56-year-old female with a history of diverticulitis here for evaluation of suprapubic abdominal pain for the past day. Patient states the pain is sharp in nature and is severe, and will occasionally radiate into her left lower quadrant. She has not tried any medication for pain. Denies a history of previous similar sensation. She reports nausea and chills but no vomiting, diarrhea, constipation, blood in stools, dysuria, hematuria, urgency, frequency, fevers. She was treated for diverticulitis at the end of last month with antibiotics; has not yet had follow-up colonoscopy. Last colonoscopy 04/16 with polyps and diverticulosis. Additionally reporting some left great toe irritation for the past 3 days. She states that the toe was incredibly tender to touch and light sensation and was red and inflamed. She was evaluated by her primary care doctor who ordered laboratory studies and imaging, but she has not had this done yet. She does report good relief after indomethacin. Related Data Home Medications Medication Instructions Recorded Confirmed ergocalciferol (vitamin D2) 1,250 1,250 mcg PO 2XW 04/18/19 09/19/21 mcg (50,000 unit) capsule estradiol 0.5 mg tablet 0.5 mg PO QNOON 04/18/19 09/19/21 levothyroxine 50 mcg tablet 50 mcg PO DAILY 04/18/19 09/19/21 medroxyprogesterone 5 mg tablet 5 mg PO QNOON 04/18/19 09/19/21 sumatriptan succinate 100 mg tablet 100 mg PO PRN PRN Migraine Headache 04/18/19 09/19/21 Allergies Allergy/AdvReac Type Severity Reaction Status Date / Time codeine AdvReac Intermediate Vomiting Verified 10/27/21 09:33 Review of Systems Review of Systems: Gen.: Reports chills. Eyes: Denies eye pain or visual change ENT: Denies congestion Respiratory: Denies shortness of breath or cough CV: Denies chest pain or palpitations GI: Reports abdominal pain and nausea. Denies emesis or diarrhea denies burning, urgency, frequency or hematuria Musculoskeletal: Reports right toe pain. Denies back pain or muscle pain Neuro: Denies numbness, tingling, weakness or focal weakness Skin: Denies rash Except as documented, all other systems reviewed and negative [facility] Past Medical History Medical History Adenomatous colon polyp Anxiety Depression Diverticulitis GI bleed Hypothyroid Left wrist fracture Migraine Surgical History Surgical History H/O colonoscopy H/O wisdom tooth extraction Family History Family History Mother Acute myocardial infarction Cerebrovascular accident Father Family history of lymphoma Family history of malignant neoplasm of breast in first degree relative Grandparent Family history of malignant neoplasm of breast Family history of malignant neoplasm of ovary Social History Social History Smoking status: Never smoker Alcohol intake: never Substance use: never Substance use type: does not use Spiritual care concerns: No Exam Narrative: APPEARANCE: Well appearing, no pain in distress, well-nourished. Head: Normocephalic and atraumatic. EYES: PERRLA/EOMI, conjunctivae clear NOSE: No nasal drainage EARS: External ear normal in appearance THROAT: Oropharynx is clear. Mucous membranes are moist. NECK: Supple. No adenopathy, no masses. RESPIRATORY: Airway patent, respirations nonlabored. Clear to auscultation bilaterally, no rales, rhonchi, wheezing. CARDIOVASCULAR: 2+ DP/PT pulses bilaterally. Regular rate and rhythm without murmurs, rubs, or gallops. ABDOMINAL: Tender to palpation in suprapubic region. No CVA tenderness. Normoactive bowel sounds. Soft, nondistended
[2021-10-27 09:35] VITALS: BP 148/93; PULSE 85; RESP 15; O2SAT 99
[2021-10-27 09:35] LABS: Basophils Absolute Auto 0.1 K/mm3 (0.0-0.1); Basophils Percent Auto 0.5 % (0.2-1.2); Eosinophils Absolute Auto 0.1 K/mm3 (0-0.3); Eosinophils Percent Auto 0.8 % (0-4.4); Hematocrit 38.5 % (37.0-47.0); Hemoglobin 13.2 g/dL (12.0-15.0); Immature Granulocyte Absolute 0.11 K/mm3 (0.00-0.031); Immature Granulocyte Percent A 0.9 % (0-0.5); Lymphocytes Absolute Auto 1.43 K/mm3 (0.9-3.2); Lymphocytes Percent Auto 11.9 % (18.3-44.2); Mean Corpuscular HGB Conc 34.3 g/dl (32-36); Mean Corpuscular Hemoglobin 29.6 pg (26-34); Mean Corpuscular Volume 86.3 fl (80-100); Mean Platelet Volume 9.9 fl (7.4-10.4); Monocytes Absolute Auto 0.7 K/mm3 (0.1-0.6); Monocytes Percent Auto 6.2 % (2.6-8.5); Neutrophils Absolute Auto 9.5 K/mm3 (1.3-6.7); Neutrophils Percent Auto 79.7 % (45.5-73.1); Platelet Count Result 278 k/mm3 (150-375); Red Blood Count 4.46 M/mm3 (4.2-5.4); Red Cell Distribution Width 12.4 % (11.5-14.5)
[2021-10-27 09:47] LABS: Appearance Urine Cloudy (Clear); Bilirubin Urine 1+ (Negative); Blood Urine 2+ (Negative); Color Urine Yellow (Yellow); Glucose Urine UA 2+ mg/dL (Negative); Ketones Urine 1+ mg/dL (Negative); Leukocyte Esterase Ur Negative LEU/UL (Negative); Nitrate Urine Negative (Negative); Protein Urine Trace mg/dL (Negative); Specific Grav Ur >= 1.030 (1.001-1.035); Urobilinogen Urine 0.2 mg/dL (<2.0); pH Urine 5.5 (5.0-9.0)
[2021-10-27] MEDS: DICYCLOMINE HCL INJ 20 MG/2 ML VIAL IM (09:47)
[2021-10-27 09:48] LABS: Alanine Aminotransferase 25 U/L (6-35); Albumin Level 4.5 g/dL (3.5-5.1); Alkaline Phosphatase 65 U/L (38-126); Anion Gap 8 mmol/L (8-16); Aspartate Amino Transferase 21 U/L (14-36); Bilirubin,Total 0.8 mg/dL (0.2-1.3); Blood Urea Nitrogen 8 mg/dL (7-17); Carbon Dioxide 23 mmol/L (22-30); Chloride 104 mmol/L (98-107); Estimated CRCL calculation 110 ml/min; Estimated Glomerular Filt Rate > 60; Glucose 192 mg/dL (65-110); Lipase 46 U/L (23-300); Sodium 135 mmol/L (137-145)
[2021-10-27 09:54] LABS: Add Urine Microscopic? YES; Bacteria Urine Trace /hpf; Mucus Urine Heavy /lpf; Squamous Epithelial Cell Urine Moderate /hpf (Few)
[2021-10-27 10:54] VITALS: BP 128/81; PULSE 81; RESP 14; O2SAT 99
[2021-10-27] MEDS: ONDANSETRON INJ 4 MG/2 ML VIAL IV PUSH (11:07)
[2021-10-27] MEDS: MORPHINE SULFATE (*CRX) 4 MG/ML INJ IV PUSH (11:07)
[2021-10-27] MEDS: metroNIDAZOLE 250 MG TABLET 500 MG PO (12:27)
[2021-10-27 12:33] VITALS: BP 136/85; PULSE 74; RESP 15; O2SAT 99
== END 2021-10-27 13:09 | disposition home or self-care (01) ==
PROVIDERS: Emergency Provider Emergency Medicine; PCP Family Medicine
DX: K57.32 Diverticulitis of large intestine without perforation or abscess without bleeding (principal); E03.9 Hypothyroidism, unspecified; F41.9 Anxiety disorder, unspecified; F32.A Depression, unspecified; Z86.010 Personal history of colon polyps; M19.072 Primary osteoarthritis, left ankle and foot; M77.8 Other enthesopathies, not elsewhere classified; K57.90 Diverticulosis of intestine, part unspecified, without perforation or abscess without bleeding; N28.1 Cyst of kidney, acquired; D25.9 Leiomyoma of uterus, unspecified
CPT/HCPCS: 36415; 73660; 74177; 80053; 81001; 83690; 85025; 87086; 96372; 96374; 96375; 99284; A9270; J0500; J2270; J2405; Q9967

== ENCOUNTER 2022-02-14 00:33 | Day surgery (SDC) | payer BC, SELFPAY ==
[2022-01-30 14:40] VITALS: BMI 36.1
[2022-02-14 06:20] VITALS: BP 143/80; PULSE 95; RESP 20; TEMP 36.2; O2SAT 98; BMI 36.7
[2022-02-14] MEDS: LACTATED RINGERS 1,000 ML 150 ML IV CONT (06:30)
--- NOTE | 2022-02-14 07:24 | WPDANESEPPF ---
Anes - Initial Pre Proc Eval Procedure: Operation Date: 02/14/22 07:30 Proposed Procedures p Colonoscopy - Manuel Bush MD Date/Time: 02/14/22 07:24 Surgeon: Manuel Bush MD Pre Op Diagnosis: hx of rectal polyps, diverticulitis Patient Data Age: 56 Gender: F Height: 1.7 m Weight: 106.3 kg Last Vital Signs Temp 97.2 F L 02/14/22 06:20 Pulse 95 02/14/22 06:20 Resp 20 02/14/22 06:20 BP 143/80 H 02/14/22 06:20 Pulse Ox 98 02/14/22 06:20 O2 Del Method Room Air 02/14/22 06:20 Allergies Allergy/AdvReac Type Severity Reaction Status Date / Time codeine AdvReac Intermediate Vomiting Verified 02/14/22 06:18 Home Medications Medication Instructions Recorded Confirmed Type ergocalciferol (vitamin D2) 1,250 1,250 mcg PO 2XW 04/18/19 01/30/22 History mcg (50,000 unit) capsule estradiol 0.5 mg tablet 0.5 mg PO QNOON 04/18/19 01/30/22 History levothyroxine 50 mcg tablet 50 mcg PO DAILY 04/18/19 01/30/22 History medroxyprogesterone 5 mg tablet 5 mg PO QNOON 04/18/19 01/30/22 History sumatriptan succinate 100 mg tablet 100 mg PO PRN PRN Migraine Headache 04/18/19 01/30/22 History sodium,potassium,mag sulfates 17.5 See Rx Instructions PO .COMPLEX 01/01/22 02/14/22 Rx gram-3.13 gram-1.6 gram oral soln #354 mL (Suprep Bowel Prep Kit) solifenacin 5 mg tablet (Vesicare) 5 mg PO DAILY #30 tabs 01/11/22 01/30/22 Rx terbinafine HCl 250 mg tablet 250 mg PO DAILY 01/30/22 01/30/22 History Patient hx anesthesia problems: none Family hx anesthesia problems: none Results Review: All pre-operative results and documents have been reviewed as part of the pre-operative evaluation. [facility] Past Medical History Medical History Adenomatous colon polyp Anxiety Depression Diverticulitis GI bleed Hypothyroid Left wrist fracture Migraine Onychomycosis Surgical History Surgical History H/O colonoscopy H/O wisdom tooth extraction Family History Family History Mother Acute myocardial infarction Cerebrovascular accident Father Family history of lymphoma Family history of malignant neoplasm of breast in first degree relative Grandparent Family history of malignant neoplasm of breast Family history of malignant neoplasm of ovary Social History Social History Smoking status: Never smoker Second hand tobacco smoke exposure: No Alcohol intake: never Substance use: never Substance use type: does not use Living arrangements: alone Gender identity (if verbalized by the patient): Female Sexual Orientation (if Verbalized by the Patient): Straight or Heterosexual Spiritual care concerns: No Agree to blood products: Yes Anes - Eval Final PreProcedure Day of Procedure 02/14/22 07:24 Patient weight: obese Heart: regular rate and rhythm Lungs: clear to auscultation Airway: Mallampati scale class II Neurological: alert and oriented Last oral intake: >/= 8 hours ASA classification: III Emergent: no Anesthetic plan: proceed Anesthesia type and monitoring: general GIVS and standard monitoring Results Review: All pre-operative results and documents have been reviewed as part of the pre-operative evaluation. Informed Consent: The patient's anesthetic plan and its attendant risks and benefits were discussed with the patient/family/POA. Questions were solicited and answers provided to the satisfaction of the patient/family/POA.
--- NOTE | 2022-02-14 07:37 | PM.HPGS ---
History of Present Illness History of Present Illness Consent: Risks, benefits, and alternatives have been discussed and questions answered. Patient agrees to proceed with procedure. Chief complaint: hx of rectal polyps, diverticulitis Narrative: Nataly Upton is a 56 year old female Presents for colonoscopy. Patient has a history of diverticulitis. Most recently October of this year. Confirmed by CT scan. Patient has had several brief episodes of left lower quadrant pain attributed to diverticulitis. Currently she is asymptomatic pain free with normal bowel movements. She presents today for colonoscopy given this history of diverticulitis. Additionally patient has a history of colon polyps. She had a history of a large rectal polyp which required additional therapy. Seen by Dr. Reyes in 2019. Patient apparently has had this treated with APC and because of recurrence discussions were held about endoscopic ultrasound. Patient tells me that she feels it was totally excised. Follow-up today will include evaluation of this area Review of Systems Review of Systems: review of systems noncontributory. [facility] Past Medical History Medical History Adenomatous colon polyp Anxiety Depression Diverticulitis GI bleed Hypothyroid Left wrist fracture Migraine Onychomycosis Surgical History Surgical History H/O colonoscopy H/O wisdom tooth extraction Family History Family History Mother Acute myocardial infarction Cerebrovascular accident Father Family history of lymphoma Family history of malignant neoplasm of breast in first degree relative Grandparent Family history of malignant neoplasm of breast Family history of malignant neoplasm of ovary Social History Social History Smoking status: Never smoker Second hand tobacco smoke exposure: No Alcohol intake: never Substance use: never Substance use type: does not use Living arrangements: alone Gender identity (if verbalized by the patient): Female Sexual Orientation (if Verbalized by the Patient): Straight or Heterosexual Spiritual care concerns: No Agree to blood products: Yes Meds Home Medications and Allergies Home Medications Medication Instructions Recorded Confirmed Type ergocalciferol (vitamin D2) 1,250 1,250 mcg PO 2XW 04/18/19 01/30/22 History mcg (50,000 unit) capsule estradiol 0.5 mg tablet 0.5 mg PO QNOON 12/22/19 10/05/22 History levothyroxine 50 mcg tablet 50 mcg PO DAILY 04/18/19 01/30/22 History medroxyprogesterone 5 mg tablet 5 mg PO QNOON 04/18/19 01/30/22 History sumatriptan succinate 100 mg tablet 100 mg PO PRN PRN Migraine Headache 04/18/19 01/30/22 History sodium,potassium,mag sulfates 17.5 See Rx Instructions PO .COMPLEX 01/01/22 02/14/22 Rx gram-3.13 gram-1.6 gram oral soln #354 mL (Suprep Bowel Prep Kit) solifenacin 5 mg tablet (Vesicare) 5 mg PO DAILY #30 tabs 01/11/22 01/30/22 Rx terbinafine HCl 250 mg tablet 250 mg PO DAILY 01/30/22 01/30/22 History Allergies Allergy/AdvReac Type Severity Reaction Status Date / Time codeine AdvReac Intermediate Vomiting Verified 02/14/22 06:18 Vital Signs Vital Signs - 24 hr 02/14/22 06:20 Temperature 97.2 F L Pulse Rate 95 Respiratory Rate 20 Blood Pressure 143/80 H Pulse Oximetry 98 Oxygen Delivery Room Air Exam Narrative: Physical exam reveals patient to be alert. Vital signs stable. HEENT exam is unremarkable. Patient is anicteric. Lungs are clear to auscultation and percussion. Heart is without murmur or extra sounds. Abdomen bowel sounds are present soft nontender with no organomegaly. Digital external rectal exam is normal. Assessment and Plan Assessment and plan (1) History of colon polyps: Code(s): Z86.010 -
[2022-02-14 08:00] VITALS: BP 116/64; PULSE 85; RESP 21; O2SAT 95
[2022-02-14 08:10] VITALS: BP 128/88; PULSE 86; RESP 21; O2SAT 100
[2022-02-14 08:20] VITALS: BP 136/87; PULSE 78; RESP 14; O2SAT 100
== END 2022-02-14 08:30 | disposition home or self-care (01) ==
PROVIDERS: PCP Family Medicine; Visit Provider Internal Medicine Gastroenterology
PROC: 0DJD8ZZ Inspection of Lower Intestinal Tract, Via Natural or Artificial Opening Endoscopic (ICD-10-PCS; CPT 45378; principal; 2022-02-14 07:30)
DX: Z09 Encounter for follow-up examination after completed treatment for conditions other than malignant neoplasm (principal); K64.8 Other hemorrhoids; K57.30 Diverticulosis of large intestine without perforation or abscess without bleeding; Z87.19 Personal history of other diseases of the digestive system; Z86.010 Personal history of colon polyps; E03.9 Hypothyroidism, unspecified; E66.9 Obesity, unspecified; Z68.36 Body mass index [BMI] 36.0-36.9, adult
CPT/HCPCS: 45378; J2704; J7120

== ENCOUNTER → 2022-03-20 11:56 | Outpatient (CLI) | payer BC, SELFPAY ==
--- NOTE | ~2022-03-20 | MM_ITS ---
EXAMINATION: MM screening haseeb BI w breanna HISTORY: Screening mammogram TECHNIQUE: Craniocaudal and mediolateral oblique 3-D tomosynthesis images were obtained and synthetic 2-D images were generated. CAD analysis was submitted and interpreted. COMPARISON: 05/03/2020, 02/05/2019 bilateral screening mammogram examinations BREAST PARENCHYMAL COMPOSITION: There are scattered areas of fibroglandular density. FINDINGS: Stable mild fibroglandular asymmetry. Occasional small circumscribed low-density benign-melissa earing mammographic opacities. Minimal bilateral benign calcification. There is no evidence of suspic ious mass, calcification, or architectural distortion to suggest malignancy in either breast. There h as been no suspicious interval change. IMPRESSION: 1. No mammographic evidence of malignancy. 2. Recommend routine screening mammography in one year. BI-RADS Category 2: Benign finding(s). Reviewed, dictated and finalized at location A. [employer]
--- NOTE | ~2022-03-20 | DEXA_ITS ---
Bone Density Report Name: MORGAN MAK Age: 56 Sex: Female Ethnicity: White Date of : 1965 Indication: monitoring treatment; height loss;postmenopausal Referring Provider: REINALDO GROSSMAN Study: Bone densitometry was performed. Exam Date: March 20, 2022 Accession number: [id number] Bone Density: Region BMD T-score Z-score Classification AP Spine (L1, L2, L3) 1.032 0.1 1.4 Normal Femoral Neck (Left) 0.768 -0.7 0.5 Normal Total Hip (Left) 0.928 -0.1 0.7 Normal Femoral Neck (Right) 0.779 -0.6 0.5 Normal Total Hip (Right) 0.908 -0.3 0.5 Normal Total Hip Mean 0.918 -0.2 0.6 Normal World Health Organization criteria for BMD impression classify patients as: Normal (T-score at or above -1.0), Osteopenia (T-score between -1.0 and -2.5), or Osteoporosis (T-score at or below -2.5). 10-year Fracture Risk: FRAX not reported because: All T-scores for Spine Total, Hip Total, Femoral Neck at or above -1.0 Treated for osteoporosis Previous Exams: Region Exam Age BMD T-score BMD Change BMD Change Date g/cm2 vs Baseline vs Previous AP Spine(L1, L2, L3) 03/20/2022 56 1.032 0.1 0.003 0.003 08/18/2017 52 1.029 0.1 Total Hip(Left) 03/20/2022 56 0.928 -0.1 0.029* 0.029* 08/18/2017 52 0.899 -0.4 Total Hip(Right) 03/20/2022 56 0.908 -0.3 -0.015 -0.015 08/18/2017 52 0.922 -0.2 *Denotes significance at 95% confidence level, LSC for AP Spine = 0.022 g/cm2, LSC for Total Hip = 0.027 g/cm2 Clinical Information Provided by Patient: Is being treated for osteoporosis Has used the following medications: HRT (i.e. estrogen/hormone therapy), Vitamin D, LEVOTHYROXINE Patient maximum height was 67.0 Menopause Age: 52 No regular weight bearing exercise Drinks caffeinated beverages Onset of menses at age 14 Number of children 1 Impression: The patient has normal bone mass. No significant bone loss was observed. Discussion: PATIENT UNDER TREATMENT WITH NO SIGNIFICANT BMD LOSS SINCE LAST EXAM. In an untreated patient, BMD typically declines with age. A lack of decline or gain is usually a sign that treatment is efficacious and fracture risk is reduced. It is important to ask patients whether they are taking their medications and to encourage continued and appropriate compliance with their osteoporosis therapies to reduce fracture risk. It is also important to review their risk facto
== END ==
PROVIDERS: PCP Family Medicine; Visit Provider Obstetrics & Gynecology Gynecology
DX: Z12.31 Encounter for screening mammogram for malignant neoplasm of breast (principal); Z78.0 Asymptomatic menopausal state
CPT/HCPCS: 77063; 77067; 77080

== ENCOUNTER 2023-06-20 10:58 | Outpatient (CLI) | payer BC, SELFPAY ==
--- NOTE | ~2023-06-20 | CT_ITS ---
EXAMINATION: CT abdomen w con INDICATION: Left lower quadrant abdominal pain TECHNIQUE: Computed tomographic images of the abdomen were obtained after the administration of 100 c c of Omnipaque 350 intravenous contrast. The dose-length product (DLP) was 793.59 mGy-cm. Automated e xposure control and iterative reconstruction technique were employed. COMPARISON: 10/27/2021 FINDINGS: Stable nodules of the right lower lobe are consistent with old granulomatous disease. No ne w pulmonary nodules are identified in the visualized lung bases. The heart size is normal. Cysts of t he liver measure up to 3.4 cm in the right hepatic lobe. The spleen, pancreas, gallbladder, and adren al glands are normal. The kidneys are unremarkable. There are no pathologically enlarged abdominal ly mph nodes. No free intraperitoneal gas or evidence of bowel obstruction. The appendix is normal. IMPRESSION: 1. No CT correlate for the patient's left lower quadrant pain. Pelvic etiology for the patient's symp toms is not excluded. CT of the pelvis was reportedly denied by the insurance carrier. Reviewed, dictated and finalized at location B. [facility] [employer] IMPRESSION: 1. No CT correlate for the patient's left lower quadrant pain. Pelvic etiology for the patient's symptoms is not excluded. CT of the pelvis was reportedly den ied by the insurance carrier.
== END 2023-06-20 10:59 ==
PROVIDERS: PCP Physician Assistant Medical; Visit Provider Physician Assistant Medical
DX: R10.9 Unspecified abdominal pain (principal)
CPT/HCPCS: 74160; Q9967